=== PATIENT | male | born 2000 | race Two or more races ===

== ENCOUNTER 2024-02-17 09:44 | Emergency (ER) | payer MEDICAID, OTHER ==
[~2024-02-17] VITALS: Ht 175.3 cm; Wt 76.8 kg
[2024-02-17] MEDS ORDERED: IBUP-1454 PO (11:57)
[2024-02-17] MEDS ORDERED: BENZ100C97 PO (11:57)
[2024-02-17] MEDS ORDERED: PROM1SOL4 PO (11:57)
[2024-02-17] MEDS ORDERED: AZIT-43 PO (11:57)
[2024-02-17] MEDS ORDERED: ACET500T58 PO (11:57)
[2024-02-17] MEDS ORDERED: GUAI600T78 PO (11:57)
--- NOTE | 2024-02-17 11:57 | ED.PDOC ---
History of Present Illness HPI Comments 23 year old male presents for URI Onset: 4 days ago Taking: Nightquil Admits to sick contacts Denies tobacco use Denies asthma Chief Complaint: Flu like Time Seen by MD: 10:04 Reviewed Notes: Nurses Notes, Medications, Allergies Information Source: Patient All Other Systems: Reviewed and Negative (per hpi) Physical Exam General Appearance: No Apparent Distress, Normal HEENT: Normal ENT Inspection, Pharynx Normal, TMs Normal Neck: Full Range of Motion, Non-Tender, Normal, Normal Inspection Respiratory: Chest Non-Tender, Lungs Clear, No Accessory Muscle Use, No Respiratory Distress, Normal Breath Sounds Cardiovascular: No Edema, No JVD, No Murmur, No Gallop, Normal Peripheral Pulses, Regular Rate/Rhythm Breast Exam: Deferred Gastrointestinal: No Organomegaly, Non Tender, No Pulsatile Mass, Normal Bowel Sounds, Soft Genitalia: Deferred Pelvic: Deferred Rectal: Deferred Extremities: No calf tenderness, Normal capillary refill, Normal inspection, Normal range of motion, Non-tender, No pedal edema Musculoskeletal : Apperance: Normal Neurologic: Alert, [employer] member II-XII nml as Tested, No Motor Deficits, Normal Affect, Normal Mood, No Sensory Deficits Cerebellar Function: Normal Reflexes: Normal Skin: Dry, Normal Color, Warm Lymphatic: No Adenopathy Was a procedure done? Was a procedure done?: No Fever Differential Dx Differential Diagnosis: Viral Syndrome X-Ray, Labs, Meds, VS Vital Signs Date Time Temp Pulse Resp B/P (MAP) Pulse Ox O2 Delivery O2 Flow Rate FiO2 02/17/24 11:59 87 16 97 Room Air 02/17/24 11:59 97.5 87 16 127/76 (93) 97 97.5 02/17/24 10:04 97.5 87 16 127/76 (93) 97 X-Ray, Labs, Meds, VS Comment The patient is overall well-appearing nontoxic on exam. On physical exam, respirations even and unlabored, clear to auscultation bilaterally. Oxygen stable on room air. Did not have any focal lung findings and therefore chest x-ray was not indicated during this exam Low suspicion of strep pharyngitis given physical exam findings and patient's presenting symptoms No signs of meningismus on exam Overall, the patient is well hydrated and nontoxic. Plan for symptomatic control for fever and pain as needed. The patient was able to tolerate p.o. intake in the ED. at this time, patient is safe for discharge home. The exam findings and plan discussed. We will discharge home with PCP follow up and strict return precautions. Empiric tx Discussed that cough can linger up to 6 weeks after viral URI Supportive care and return precautions discussed Counseled viral infection and explained that antibiotics would not be helpful in resolving the illness sooner. Recommended vitamin C, rest, handwashing, and symptomatic care. Expect 2-week course with possibly of cough lingering up to 6 weeks. Nonpharmacological remedies for fluids has been recommended as well Time of 1ST Reevaluation: 11:39 Reevaluation 1ST: Improved Patient Education/Counseling: Diagnosis, Treatment Family Education/Counseling: Diagnosis, Treatment Departure 1 Departure Time of Disposition: 11:54 Impression: Primary Impression: Viral syndrome Disposition: 01 HOME / SELF CARE / HOMELESS Condition: Stable e-Prescriptions Ibuprofen (Ibuprofen) 600 Mg Tab 1 TAB PO TID for 10 Days, #30 TAB 0 Refills Prov: CAROL GRANGER NP 02/17/24 Acetaminophen (Acetaminophen) 500 Mg Tab 500 MG PO Q6HP PRN for 10 Days, #40 TAB 0 Refills Prov: CAROL GRANGER NP 02/17/24 Guaifenesin (Mucinex) 600 Mg Tab 1 TAB PO BID for 47 Days, #94 TAB 0 Refills Prov: CAROL GRANGER NP 02/17/24 Promethazine-Dm (Promethazine Dm 6.25-15 mg/5Ml) 1 Ashley Ashley 5 ML PO TIDP PRN for 10 Days, #150 ML 0 Refills Prov: CAROL GRANGER NP 02/17/24 Benzonatate (Benzonatate) 100 Mg Cap 1 CAP PO TID for 10 Days, #30 CAP 0 Refills Prov: CAROL GRANGER NP 02/17/24 Azithromycin (Azithromycin) 250 Mg Tab 250 MG PO DAILY MDD 500 for 5 Days, #6 TAB 0 Refills 2 TABLETS ORALLY ON DAY ONE, THEN 1 TABLET ORALLY DAILY FOR 4 DAYS Prov: CAROL GRANGER NP 02/17/24 Critical Care Note Critical Care Time?: No Stability Stability form required: No Heart Score Heart Score: Heart Score Response (Comments) Value History N/A 0 EKG N/A 0 Age N/A 0 Risk Factors N/A 0 Troponin N/A 0 Total 0 CAROL GRANGER NP Feb 17, 2024 11:57
[2024-02-17 11:59] VITALS: BP 127/76; PULSE 87; RESP 16; TEMP 97.5; O2SAT 97
== END 2024-02-17 11:57 | disposition home or self-care (01) ==
LOC: ER 09:44
DX: B34.9 Viral infection, unspecified (principal)